=== PATIENT | male | born 2000 | race Caucasian/White ===

== ENCOUNTER 2020-02-25 18:03 | Emergency (ER) | payer OTHER ==
[~2020-02-25] VITALS: Ht 182.9 cm; Wt 68.2 kg
[2020-02-25 18:30] VITALS: Ht 182.9 cm; Wt 68.2 kg
[2020-02-25 19:18] LABS: NITRITE NEGATIVE (NEGATIVE)
[2020-02-25 19:19] LABS: BACTERIA MODERATE /hpf (NEGATIVE); BILIRUBIN NEGATIVE (NEGATIVE); EPITHELIAL CELLS NSEEN /hpf (0-5); GLUCOSE NEGATIVE (NEGATIVE); KETONE NEGATIVE (NEGATIVE); RED CELLS - URINE 0-5 /hpf (0-5); UROBILINOGEN 8 mg/dL (NORMAL); WHITE CELLS - URINE >50 /hpf (NEGATIVE)
[2020-02-25] MEDS ORDERED: KEFLEX500 MG PO (19:35)
[2020-02-25 20:35] VITALS: BP 120/77
== END 2020-02-25 23:03 | disposition home or self-care (01) ==
LOC: D.ER 18:03
PROVIDERS: Family Medicine
DX: Z20.2 Contact with and (suspected) exposure to infections with a predominantly sexual mode of transmission (principal); R30.0 Dysuria; N39.0 Urinary tract infection, site not specified; R36.9 Urethral discharge, unspecified

== ENCOUNTER 2020-12-22 18:55 | Emergency (ER) | payer MEDICAID ==
[~2020-12-22] VITALS: Ht 182.9 cm; Wt 68.2 kg
[~2020-12-22 18:55] MED LIST: AUGMENTIN 875-11 TAB PO; KEFLEX500 MG PO; MEDROL DOSE PACK4 MG PO
[2020-12-22 19:03] VITALS: Ht 182.9 cm; Wt 68.2 kg
[2020-12-22 19:43] LABS: BASOPHILS 0.5 % (0-2); EOSINOPHILS 1.9 % (0-7); HEMOGLOBIN 15.2 g/dL (13.5-17.5); IMMATURE GRANULOCYTES 0.2 % (0-5); LYMPHOCYTE ABS# 2.16 10x3/uL (1.32-3.57); MCH 30.5 pg (26.0-34.0); MCHC 34.5 g/dL (31.0-37.0); MCV 88.2 fL (80.0-100.0); MEAN PLATELET VOLUME 8.8 fL (7.4-10.4); MONOCYTES 12.2 % (2-11); NEUTROPHIL ABS# 2.82 10x3/uL (1.78-5.38); NEUTROPHILS 48.2 % (40-80); PLATELET COUNT 313 10x3/uL (130-400); RBC 4.99 10x6/uL (4.20-6.10); RDW 12.9 % (11.5-14.5); WBC 5.8 10x3/uL (4.8-10.8)
[2020-12-22 19:53] LABS: CALC OSMOLALITY 275 mosm/kg (275-300); CALCIUM 9.1 mg/dL (8.5-10.1); CARBON DIOXIDE 27.2 mmol/L (21.0-32.0); CHLORIDE - SERUM 102 mmol/L (98-107); CREATININE - SERUM 0.9 mg/dL (0.6-1.3); GLUCOSE 104 mg/dL (74-106); POTASSIUM - SERUM 3.9 mmol/L (3.5-5.1); SODIUM 138 mmol/L (136-145); UREA NITROGEN 12 mg/dL (7-18); eGFR NON AFRICAN AMERICAN > 90 mL/min (90-120)
[2020-12-22 19:59] LABS: ALBUMIN 4.3 g/dL (3.4-5.0); ALKALINE PHOSPHATASE 100 U/L (30-120); ALT (SGPT) 28 U/L (10-68); PROTEIN - SERUM 8.4 g/dL (6.4-8.2)
[2020-12-22 20:05] LABS: APTT 34.6 SECONDS (22.8-39.4); INR 1.23 (0.85-1.17); PROTIME 14.4 SECONDS (11.6-15.0)
[2020-12-22 20:26] LABS: D-DIMER-QUANTITATIVE 0.3 mg/L (<0.20)
[2020-12-22] MEDS ORDERED: ZYRTEC10 MG PO (21:42)
[2020-12-22] MEDS ORDERED: FLUTICASONE PRO16 GM NASAL (21:42)
[2020-12-22 22:08] VITALS: BP 136/94
== END 2020-12-22 22:08 | disposition home or self-care (01) ==
LOC: D.ER 18:55
PROVIDERS: Family Medicine
DX: R09.82 Postnasal drip (principal); J45.909 Unspecified asthma, uncomplicated; Z72.0 Tobacco use; R05 Cough

== ENCOUNTER 2021-01-15 14:33 | Emergency (ER) | payer BC ==
[~2021-01-15] VITALS: Ht 182.9 cm; Wt 54.5 kg
[~2021-01-15 14:33] MED LIST changes: +FLUTICASONE PRO16 GM NASAL; +ZYRTEC10 MG PO
[2021-01-15 14:36] VITALS: Ht 182.9 cm; Wt 54.5 kg
[2021-01-15 14:57] LABS: BASOPHILS 0.8 % (0-2); EOSINOPHILS 1.4 % (0-7); HEMATOCRIT 44.7 % (42.0-54.0); HEMOGLOBIN 15.4 g/dL (13.5-17.5); IMMATURE GRANULOCYTES 0.2 % (0-5); LYMPHOCYTE ABS# 1.77 10x3/uL (1.32-3.57); LYMPHOCYTES 27.1 % (15-50); MCH 30.7 pg (26.0-34.0); MCHC 34.5 g/dL (31.0-37.0); MEAN PLATELET VOLUME 8.6 fL (7.4-10.4); MONOCYTES 12.7 % (2-11); NEUTROPHIL ABS# 3.79 10x3/uL (1.78-5.38); NEUTROPHILS 57.8 % (40-80); RBC 5.02 10x6/uL (4.20-6.10); RDW 13.1 % (11.5-14.5); WBC 6.5 10x3/uL (4.8-10.8)
[2021-01-15 14:58] LABS: PLATELET COUNT 238 10x3/uL (130-400)
[2021-01-15 15:09] LABS: CALC OSMOLALITY 274 mosm/kg (275-300); CALCIUM 8.8 mg/dL (8.5-10.1); CARBON DIOXIDE 31.5 mmol/L (21.0-32.0); CHLORIDE - SERUM 103 mmol/L (98-107); CREATININE - SERUM 1.1 mg/dL (0.6-1.3); GLUCOSE 88 mg/dL (74-106); POTASSIUM - SERUM 3.6 mmol/L (3.5-5.1); SODIUM 138 mmol/L (136-145); UREA NITROGEN 13 mg/dL (7-18); eGFR NON AFRICAN AMERICAN 89 mL/min (90-120)
[2021-01-15 15:15] LABS: ALBUMIN 4.3 g/dL (3.4-5.0); ALKALINE PHOSPHATASE 107 U/L (30-120); ALT (SGPT) 30 U/L (10-68); BILIRUBIN - TOTAL 1.79 mg/dL (0.2-1.3); MAGNESIUM - SERUM 2.3 mg/dL (1.8-2.4)
[2021-01-15 15:29] LABS: BILIRUBIN NEGATIVE (NEGATIVE); KETONE NEGATIVE (NEGATIVE); NITRITE NEGATIVE (NEGATIVE); UROBILINOGEN NORMAL mg/dL (< 2)
[2021-01-15 15:37] LABS: BACTERIA FEW HPF (NONE SEEN); SQUAMOUS EPITHELIAL 0-5 HPF (0-4); WHITE CELLS - URINE 0-5 HPF (0-1)
[2021-01-15 15:40] LABS: UDS - AMPHET POSITIVE QUAL (NEGATIVE); UDS - BARB NEGATIVE QUAL (NEGATIVE); UDS - BENZO NEGATIVE QUAL (NEGATIVE); UDS - COCAINE NEGATIVE QUAL (NEGATIVE); UDS - OPIATE NEGATIVE QUAL (NEGATIVE); UDS - PCP NEGATIVE QUAL (NEGATIVE); UDS - THC POSITIVE QUAL (NEGATIVE)
--- NOTE | 2021-01-15 17:27 | NUR ---
JESUS CHURCH APRN FOR DR AU, NOTIFIED OF PATIENT'S BEHAVIOR AND ASSESSMENT. PATIENT IS MODERATE RISK. STATES HE IS NOT SUICIDAL AND ONLY MADE SUICIDAL STATEMENTS TO HIS GIRLFIEND OUT OF ANGER TO GET A REACTION OUT OF HER. RESOURCES GIVEN AND HE VERBALIZES UNDERSTANDING.
[2021-01-15 18:45] LABS: SARS-CoV-2 ANTIGEN NEGATIVE- SARS-COV-2 (NEGATIVE)
[2021-01-15 22:08] VITALS: BP 126/74
== END 2021-01-15 22:09 ==
LOC: D.ER 14:33
PROVIDERS: Family Medicine
DX: R45.851 Suicidal ideations (principal); J45.909 Unspecified asthma, uncomplicated; X83.8XXA Intentional self-harm by other specified means, initial encounter; Y93.9 Activity, unspecified; Y92.9 Unspecified place or not applicable

== ENCOUNTER 2021-01-25 11:03 | Emergency (ER) | payer BC ==
[~2021-01-25] VITALS: Ht 182.9 cm; Wt 63.6 kg
[2021-01-25 11:09] VITALS: Ht 182.9 cm; Wt 63.6 kg
[2021-01-25 11:50] LABS: BASOPHILS 0.5 % (0-2); EOSINOPHILS 1.7 % (0-7); HEMATOCRIT 43.1 % (42.0-54.0); HEMOGLOBIN 14.5 g/dL (13.5-17.5); IMMATURE GRANULOCYTES 0.2 % (0-5); LYMPHOCYTE ABS# 1.47 10x3/uL (1.32-3.57); LYMPHOCYTES 22.5 % (15-50); MCH 30.3 pg (26.0-34.0); MCHC 33.6 g/dL (31.0-37.0); MEAN PLATELET VOLUME 8.6 fL (7.4-10.4); NEUTROPHIL ABS# 4.25 10x3/uL (1.78-5.38); NEUTROPHILS 65.1 % (40-80); PLATELET COUNT 270 10x3/uL (130-400); RBC 4.79 10x6/uL (4.20-6.10); RDW 12.9 % (11.5-14.5); WBC 6.5 10x3/uL (4.8-10.8)
[2021-01-25 12:03] LABS: CALC OSMOLALITY 277 mosm/kg (275-300); CALCIUM 9.2 mg/dL (8.5-10.1); CHLORIDE - SERUM 102 mmol/L (98-107); GLUCOSE 105 mg/dL (74-106); POTASSIUM - SERUM 3.4 mmol/L (3.5-5.1); SODIUM 139 mmol/L (136-145); UREA NITROGEN 13 mg/dL (7-18); eGFR NON AFRICAN AMERICAN > 90 mL/min (90-120)
[2021-01-25 12:09] LABS: ALBUMIN 4.5 g/dL (3.4-5.0); ALKALINE PHOSPHATASE 103 U/L (30-120); ALT (SGPT) 21 U/L (10-68); BILIRUBIN - TOTAL 1.14 mg/dL (0.2-1.3); PROTEIN - SERUM 8.1 g/dL (6.4-8.2)
[2021-01-25 12:16] LABS: UDS - AMPHET POSITIVE QUAL (NEGATIVE); UDS - BARB NEGATIVE QUAL (NEGATIVE); UDS - BENZO NEGATIVE QUAL (NEGATIVE); UDS - COCAINE NEGATIVE QUAL (NEGATIVE); UDS - OPIATE NEGATIVE QUAL (NEGATIVE); UDS - PCP NEGATIVE QUAL (NEGATIVE); UDS - THC NEGATIVE QUAL (NEGATIVE)
[2021-01-25 14:36] VITALS: BP 126/83
== END 2021-01-25 15:34 | disposition home or self-care (01) ==
LOC: D.ER 11:03
PROVIDERS: Family Medicine
DX: F19.10 Other psychoactive substance abuse, uncomplicated (principal)

== ENCOUNTER 2021-01-29 20:19 | Emergency (ER) | payer BC ==
[~2021-01-29] VITALS: Ht 182.9 cm; Wt 68.0 kg
[2021-01-29 20:38] VITALS: BP 119/75; Ht 182.9 cm; Wt 68.0 kg
[2021-01-29 20:54] LABS: BILIRUBIN NEGATIVE (NEGATIVE); KETONE NEGATIVE (NEGATIVE); NITRITE NEGATIVE (NEGATIVE); UROBILINOGEN NORMAL mg/dL (< 2)
[2021-01-29 20:55] LABS: BACTERIA FEW HPF (NONE SEEN); WHITE CELLS - URINE 0-5 HPF (0-1)
== END 2021-01-29 21:48 | disposition home or self-care (01) ==
LOC: D.ER 20:19
PROVIDERS: Family Medicine
DX: R30.0 Dysuria (principal); Z20.2 Contact with and (suspected) exposure to infections with a predominantly sexual mode of transmission

== ENCOUNTER 2021-02-16 21:47 | Emergency (ER) | payer BC ==
[~2021-02-16] VITALS: Ht 182.9 cm; Wt 65.9 kg
[2021-02-16 21:53] VITALS: BP 126/77; Ht 182.9 cm; Wt 65.9 kg
[2021-02-16] MEDS ORDERED: HYDROCORTISONE30 G8 TOPICAL (22:20)
== END 2021-02-16 22:31 | disposition home or self-care (01) ==
LOC: D.ER 21:47
DX: K64.9 Unspecified hemorrhoids (principal); J45.909 Unspecified asthma, uncomplicated

== ENCOUNTER 2021-03-22 18:15 | Emergency (ER) | payer BC ==
[~2021-03-22] VITALS: Ht 182.9 cm; Wt 68.2 kg
[~2021-03-22 18:15] MED LIST changes: +HYDROCORTISONE30 G8 TOPICAL
[2021-03-22 18:17] VITALS: BP 132/73; Ht 182.9 cm; Wt 68.2 kg
[2021-03-22] MEDS ORDERED: HYDROCORTISONE30 G9 TOPICAL (18:32)
== END 2021-03-22 18:53 | disposition home or self-care (01) ==
LOC: D.ER 18:15
DX: K64.8 Other hemorrhoids (principal); J45.909 Unspecified asthma, uncomplicated